=== PATIENT | female | born 1980 | race Caucasian/White ===

== ENCOUNTER 2019-07-14 10:39 | Outpatient (CLI) | payer OTHER, SELFPAY ==
--- NOTE | ~2019-07-14 | US_ITS ---
EXAMINATION: US OB <=14 wk fetus w TV DATE: 07/14/2019 11:29 INDICATION: Uncertain dates. TECHNIQUE: Real-time transabdominal and transvaginal pelvic ultrasound was performed. COMPARISON: None. FINDINGS: TRANSABDOMINAL ULTRASOUND: The uterus measures 11.4 x 6.1 x 4.3 cm. TRANSVAGINAL ULTRASOUND: There is an intrauterine gestational sac. A yolk sac is not identified. The crown rump length measures 4 mm, which correlates with an estimated gestational age of 6 weeks and 1 day(s) (+/-) 4 day(s). heart motion is not identified by M-mode Doppler, which may be no rmal at this size. The right ovary is not visualized. The left ovary measures 2.6 x 3.0 x 2.1 cm. The re is no free fluid in the pelvis. IMPRESSION: 1. Single intrauterine gestation with estimated date of delivery of 03/07/2020. Lack of visualization of a normal yolk sac is not reassuring. Reviewed, dictated and finalized at location A.
== END 2019-07-14 10:40 | disposition home or self-care (01) ==
LOC: ANHIMG 10:44
PROVIDERS: PCP Family Medicine Adolescent Medicine; Visit Provider Obstetrics & Gynecology
DX: Z32.01 Encounter for pregnancy test, result positive (principal)
CPT/HCPCS: 76801; 76817